=== PATIENT | male | born 1945 | race Caucasian/White ===

== ENCOUNTER 2018-01-03 13:36 | Outpatient (RCR) | payer MEDICARE, OTHER ==
[~2018-01-03 13:36] MED LIST: KET10 PO; MAGN400T36 PO; MULT1TAB64 PO; PANT40TA65 PO; PER PO; PNEI IJ; PNEU0.5D3 IM; PRAV20TA65 PO; SIL50 ASDIRECTED; VALS160T22 PO; VALS1TAB63 PO; VALS40TA6 PO
[2018-01-03 14:02] VITALS: BP 115/78
[2018-01-03 14:15] VITALS: BP 101/87
[2018-01-03 14:21] VITALS: BP 109/74
[2018-01-03 14:40] VITALS: BP 127/79
--- NOTE | 2018-01-03 14:49 | EKG ---
FACILITY: [facility] [place] PATIENT NAME: ARELY BRODY : [id number] MR: [id number] V: [id number] EXAM DATE: ORDERING PHYSICIAN: SHIREEN DIAL TECHNOLOGIST: KEITH Savage Reason : DIZZY Blood Pressure : / mmHG Vent. Rate : 059 BPM Atrial Rate : 059 BPM P-R Int : 194 ms QRS Dur : 086 ms QT Int : 408 ms P-R-T Axes : 052 -17 036 degrees QTc Int : 403 ms Sinus bradycardia Otherwise normal ECG When compared with ECG of 22-JAN-2013 07:37, No significant change was found Confirmed by BILL CARLSON ([id number]) on 01/04/2018 12:29:46 PM Referred By: Confirmed By:BILL CARLSON
[2018-01-03 15:10] VITALS: BP 127/77
[2018-01-03 15:30] VITALS: BP 129/78
== END 2018-02-07 14:20 | disposition home or self-care (01) ==
LOC: SPU 13:36
PROVIDERS: ATTEND Internal Medicine
DX: R42 Dizziness and giddiness (principal); R00.1 Bradycardia, unspecified
CPT/HCPCS: 36416; 82948; 85014; 93005; 99195

== ENCOUNTER → 2019-03-11 | Outpatient (CLI) | payer MEDICARE ==
[~2019-03-11] MED LIST changes: +ASPI-1471 PO; +ATOR10TA65 PO; +CHOL400C10 PO; +LOSA100T75 PO
--- NOTE | 2019-03-11 10:14 | RADIOLOGY IMAGING REPORT ---
FACILITY: [facility] - [place] PATIENT NAME: Chris Matthews : 1945 MR: [id number] V: [id number] EXAM DATE: ORDERING PHYSICIAN: HERIBERTO DOMINGUEZ TECHNOLOGIST: Location: [facility] [place] Patient: Chris Matthews : 1945 Visit/Account:[id number] Date of Sevice: 03/11/2019 EXAMINATION: Abdominal ultrasound complete HISTORY: Abdominal pain. COMPARISON: December 27, 2012 FINDINGS: Gallbladder: Absent Liver: Negative. Common duct: Dilated measuring 13.7 mm. Pancreas: Partially obscured by bowel gas Spleen: Normal in size and echogenicity measuring 9.9 cm in length. Kidneys: Normal in size and echogenicity, the right measures 10.7 cm in length, and the left 11.3 cm . No hydronephrosis. There is a 1.6 cm cyst lower pole the right kidney Upper abdominal aorta and IVC: Negative. Ascites: None. IMPRESSION: 1.6 cm cyst lower pole the left kidney Postsurgical changes from a cholecystectomy. The common bile duct is dilated at 13.7 mm.. This may be related to the prior cholecystectomy however if biliary obstruction is of clinical concern and MRC P is recommended Report Dictated By: Norma Boss MD at 03/11/2019 10:01 AM Report E-Signed By: Norma Boss MD at 03/11/2019 10:07 AM WSN:[id number]
== END ==
LOC: US 07:23
PROVIDERS: ATTEND Internal Medicine
DX: K21.9 Gastro-esophageal reflux disease without esophagitis (principal); E83.119 Hemochromatosis, unspecified; D75.1 Secondary polycythemia; E78.5 Hyperlipidemia, unspecified; I10 Essential (primary) hypertension
CPT/HCPCS: 76700

== ENCOUNTER 2019-03-29 00:42 | Day surgery (SDC) | payer MEDICARE ==
[2019-03-29] VITALS (7 sets, daily range): BP systolic 100–151; BP diastolic 69–102
[~2019-03-29] VITALS: Ht 175.3 cm; Wt 80.7 kg
[2019-03-29] MEDS ORDERED: PROPOFOL EMUL(*) 10MG/ML 20 ML 20 ML ONE ×2 (07:09→11:01)
[2019-03-29] MEDS ORDERED: NORMOSOL R SOLN(*) 1000 ML BAG 1,000 ML IV PRN (09:55)
[2019-03-29] MEDS ORDERED: LIDOCAINE/SOD BICARB 8.4% SYR ID ONE (09:55)
--- NOTE | 2019-03-29 11:37 | Short(Outpt) Discharge Summary ---
Discharge Summary Reason for Hosp/Final Diag: (1) GERD (gastroesophageal reflux disease) Hospital Course & Plan: pt presented for egd and colonoscopy. he tolerated the procedures well and will be discharged home when criteria met. Departure Discharge to: Home Discharge Instructions Home Meds Active Scripts Atorvastatin Calcium (ATORVASTATIN CALCIUM) 10 Mg Tablet, 1 TAB PO QDAY, #90 TAB 3 Refills Prov:HERIBERTO DOMINGUEZ MD 10/11/18 Pantoprazole Sodium (PANTOPRAZOLE SODIUM) 40 Mg Tablet., 40 MG PO QDAY, #90 TAB.SR 3 Refills Prov:HERIBERTO DOMINGUEZ MD 06/15/18 Losartan Potassium (LOSARTAN POTASSIUM) 100 Mg Tablet, 100 MG PO QDAY, #90 TAB 3 Refills Prov:HERIBERTO DOMINGUEZ MD 05/08/18 Reported Medications Cholecalciferol (Vitamin D3) (VITAMIN D) 400 Unit Capsule, 400 UNIT PO, CAPSULE 02/28/19 Aspirin (ASPIR 81) 81 Mg Tablet.dr, 81 MG PO QDAY, TAB 02/28/19 Multivitamin (MULTI VITAMIN DAILY) 1 Each Tablet, 1 EACH PO QDAY 09/07/16 Diet: Regular Activity: As Tolerated Special Instructions: we will call you in 10 days with results CORI RICARDO Mar 29, 2019 11:37
== END 2019-03-29 12:20 | disposition home or self-care (01) ==
LOC: OR 00:42
PROVIDERS: ATTEND Surgery
DX: Z12.11 Encounter for screening for malignant neoplasm of colon (principal); K57.30 Diverticulosis of large intestine without perforation or abscess without bleeding; K29.70 Gastritis, unspecified, without bleeding
CPT/HCPCS: 00813; 43239; 88305; 88313; 88342; G0121; J2704